=== PATIENT | female | born 1955 | race Caucasian/White ===

== ENCOUNTER → 2017-02-22 | Outpatient (CLI) | payer OTHER ==
[~2017-02-22] MED LIST: ASPIRIN325 MG PO; BYDUREON P2 MG/0.65 SQ; CLARITIN10 M2 PO; COREG 3.125M3.125 MG PO; CRESTOR20 MG PO; FENOFIBRATE160 MG PO; HUMULIN R500 UNIT/1 SQ; LISINOPRIL30 MG PO; LORCET PLUS 7.1 EACH PO; NEURONTIN 400400 MG PO; NITROSTAT0.4 MG SL; NORVASC 5 MG TAB5 MG PO; OXYBUTYNIN CHLOR5 MG PO; PLAVIX 75 MG TA75 MG PO; PREVACID30 MG PO; RANEXA500 MG PO; SYNTHROID75 MCG PO; ZOLOFT20 MG/1 ML PO
== END ==
LOC: HEART 5 01-15 15:30
DX: I25.10 Atherosclerotic heart disease of native coronary artery without angina pectoris (principal); I10 Essential (primary) hypertension; I34.8 Other nonrheumatic mitral valve disorders; I07.1 Rheumatic tricuspid insufficiency
CPT/HCPCS: 93306

== ENCOUNTER 2020-07-10 14:16 | Emergency (ER) | payer OTHER ==
[~2020-07-10 14:16] MED LIST changes: +PROTONIX40 MG PO; +TRESIBA100 UNIT/1 SQ; +ZOLOFT50 MG PO; +ZYRTEC10 MG PO
[2020-07-10 16:45] LABS: HEMOGLOBIN 15.7 gm/dl (12.3-15.3); RED BLOOD COUNT 5.42 M/UL (4.00-5.10); WHITE BLOOD COUNT 9.2 K/UL (4.5-11.0)
[2020-07-11] MEDS ORDERED: ZOFRAN ODT 4 MG4 MG PO (01:20)
== END 2020-07-11 02:00 | disposition home or self-care (01) ==
LOC: ER1 14:16
PROVIDERS: Physician Assistant Medical
DX: U07.1 COVID-19 (principal); E86.0 Dehydration; I25.2 Old myocardial infarction; E11.9 Type 2 diabetes mellitus without complications; I10 Essential (primary) hypertension; I25.10 Atherosclerotic heart disease of native coronary artery without angina pectoris; Z85.038 Personal history of other malignant neoplasm of large intestine; Z88.1 Allergy status to other antibiotic agents; Z95.1 Presence of aortocoronary bypass graft; Z79.4 Long term (current) use of insulin
CPT/HCPCS: 71045; 80053; 81001; 82009; 82550; 82553; 83874; 84439; 84443; 84484; 85025; 93005; 99285; U0002